=== PATIENT | male | born 1965 | race Caucasian/White ===

== ENCOUNTER → 2016-11-16 | Outpatient (CLI) | payer MEDICARE, OTHER | LOC: OD 11:15 | PROVIDERS: ATTEND Family Medicine | DX: R05 Cough (principal) | CPT/HCPCS: 71020 ==

== ENCOUNTER → 2018-11-07 | Outpatient (CLI) | payer MEDICARE, OTHER ==
--- NOTE | 2018-11-07 14:31 | RADIOLOGY REPORT (SQ) ---
EXAM DESCRIPTION: KNEE RIGHT 4 VIEWS COMPLETED DATE/TIME: 11/07/2018 2:06 pm REASON FOR STUDY: PAIN IN RT KNEE M25.561 PAIN IN RIGHT KNEE COMPARISON: None. NUMBER OF VIEWS: Four views. TECHNIQUE: AP, lateral, and both oblique radiographic images acquired of the right knee. LIMITATIONS: None. FINDINGS: MINERALIZATION: Normal. BONES: No acute fracture or dislocation. No worrisome bone lesions. JOINT: Likely small joint effusion SOFT TISSUES: No soft tissue swelling. No radio-opaque foreign body. OTHER: No other significant finding. IMPRESSION: Likely small joint effusion without evidence of acute bony abnormality. TECHNICAL DOCUMENTATION: JOB ID: [id number]- All Rights Reserved Reading location - IP/workstation name: [facility]-[email or web address]
== END ==
LOC: OD 13:46
PROVIDERS: ATTEND Physician Assistant
DX: M25.561 Pain in right knee (principal)

== ENCOUNTER → 2020-08-21 | Outpatient (CLI) | payer MEDICARE, OTHER ==
--- NOTE | 2020-08-22 06:48 | XCELERA REPORT ---
[address] [address] Transthoracic Echocardiogram Report Name: RICHAR FIELD JR, JR Age: 55 yrs Gender: Male : 1965 Patient Status: Outpatient Patient Location: Study Date: 08/21/2020 10:08 AM History: Height: 63 in Weight: 125 lb BSA: 1.6 m2 Procedure: A complete two-dimensional transthoracic echocardiogram was performed (2D, M-mode, spectral and color flow Doppler). The study was technically difficult with many images being suboptimal in quality. Reason For Study: AORTIC STENOSIS Previous Evaluation: A previous study was performed on 03/01/2014 LVEF Normal. Mild . History: Aortic stenosis. Ordering Physician: YOSHI OCHOA Performed By: Freda Glez Interpretation Summary Left ventricular systolic function is normal. The right ventricle is normal in size and function. There is a trace amount of mitral regurgitation There is moderate aortic stenosis Compared to the prior echo study, there has been an increase in the severity of aortic stenosis There is a trace amount of tricuspid regurgitation There is moderate pulmonary hypertension by echo There is no pericardial effusion. MMode/2D Measurements & Calculations RVDd: 1.9 cm LVIDd: 4.2 cm FS: 36.7 % Ao root diam: 2.4 cm IVSd: 0.80 cm LVIDs: 2.6 cm EDV(Teich): 77.5 ml Ao root area: 4.5 cm2 LVPWd: 0.90 cm ESV(Teich): 25.7 ml EF(Teich): 66.9 % Doppler Measurements & Calculations MV E max mckenzie: MV dec slope: Ao V2 max: LV V1 max P.4 cm/sec 535.8 cm/sec2 305.8 cm/sec 1.9 mmHg MV A max mckenzie: MV dec time: 0.21 secAo max PG: LV V1 mean P.0 cm/sec 37.4 mmHg 1.1 mmHg MV E/A: 1.6 Ao V2 mean: LV V1 max: 223.2 cm/sec 68.0 cm/sec Ao mean PG: LV V1 mean: 22.3 mmHg 49.6 cm/sec Ao V2 VTI: 77.3 cm LV V1 VTI: 17.9 cm PA V2 max: TR max mckenzie: 103.3 cm/sec 269.6 cm/sec PA max P.3 mmHg TR max P.3 mmHg Left Ventricle The left ventricle is normal in size. There is moderate concentric left ventricular hypertrophy. Left ventricular systolic function is normal. The Ejection Fraction estimate is 55-60%. Doppler measurements suggest pseudonormalized left ventricular relaxation, which is associated with grade II/IV or mild to moderate diastolic dysfunction. Right Ventricle The right ventricle is normal in size and function. Atria The right atrium is normal. The left atrial size is normal. Mitral Valve The mitral valve is grossly normal. There is a trace amount of mitral regurgitation. Aortic Valve The aortic valve is sclerotic and shows some degree of functional abnormality. The aortic valve is moderately calcified. Peak Ao V=3.06 m/s Mean PG= 22 mm Hg. There is moderate aortic stenosis. Compared to the prior echo study, there has been an increase in the severity of aortic stenosis. Tricuspid Valve The tricuspid valve is normal in structure and function. There is no tricuspid stenosis. There is a trace amount of tricuspid regurgitation. Right ventricular systolic pressure is estimated to be elevated at 50-60mmHg. There is moderate pulmonary hypertension by echo. Pulmonic Valve The pulmonic valve is normal in structure and function. There is no pulmonic valvular stenosis. There is a trace amount of pulmonic regurgitation. Great Vessels The aortic root is normal size. The inferior vena cava appeared dilated and decreased < 50% with respiration (RAP 15-20 mmHg). Effusions There is no pericardial effusion. : YOSHI OCHOA Anil
== END ==
LOC: SP 10:46
PROVIDERS: ATTEND Physician Assistant
DX: I35.0 Nonrheumatic aortic (valve) stenosis (principal)
CPT/HCPCS: 93306

== ENCOUNTER → 2020-09-11 | Outpatient (CLI) | payer MEDICARE, OTHER ==
--- NOTE | 2020-09-11 15:38 | RADIOLOGY REPORT (SQ) ---
EXAM DESCRIPTION: CT ABD/PELVIS WITH IV ORAL IMAGES COMPLETED DATE/TIME: 09/11/2020 3:26 pm REASON FOR STUDY: (R63.4)ABNORMAL WEIGHT LOSS;(R10.13)EPIGASTRIC PAIN R10.13 EPIGASTRIC PAIN R63.4 ABNORMAL WEIGHT LOSS COMPARISON: 03/01/2014 TECHNIQUE: CT scan of the abdomen and pelvis performed using helical scanning technique with dynamic intravenous contrast injection. No oral contrast. Images reviewed with lung, soft tissue, and bone windows. Reconstructed coronal and sagittal MPR images reviewed. Delayed images for evaluation of the urinary system also acquired. All images stored on PACS. All CT scanners at this facility use dose modulation, iterative reconstruction, and/or weight based d osing when appropriate to reduce radiation dose to as low as reasonably achievable (ALARA). [facility]: Dose Right [facility]: CareDose [facility]: Dose Right [facility]: Teradose 4D [facility]: NexSteppe CONTRAST TYPE AND DOSE: contrast/concentration: Isovue 350.00 mmol/ml; Total Contrast Delivered: 65. 0 ml; Total Saline Delivered: 65.0 ml RENAL FUNCTION: Creatinine 1.0 RADIATION DOSE: CT Rad equipment meets quality standard of care and radiation dose reduction techniq ues were employed. CTDIvol: 3.1 - 3.1 mGy. DLP: 317 mGy-cm.. LIMITATIONS: Respiratory motion. FINDINGS: LOWER CHEST: No significant findings. No nodules or infiltrates. LIVER: Normal size. No masses. No dilated ducts. SPLEEN: Normal size. No focal lesions. PANCREAS: No masses. No significant calcifications. No adjacent inflammation or peripancreatic fluid collections. Pancreatic duct not dilated. GALLBLADDER: No identified stones by CT criteria. No inflammatory changes to suggest cholecystitis. ADRENAL GLANDS: No significant masses or asymmetry. RIGHT KIDNEY AND URETER: No solid masses. No significant calcifications. No hydronephrosis or hyd roureter. LEFT KIDNEY AND URETER: No solid masses. No significant calcifications. No hydronephrosis or hydr oureter. AORTA AND VESSELS: No aneurysm. No dissection. Renal arteries, SMA, celiac without stenosis. RETROPERITONEUM: No retroperitoneal adenopathy, hemorrhage or masses. BOWEL AND PERITONEAL CAVITY: No masses or inflammatory changes. No free fluid or peritoneal masses. APPENDIX: Not visualized. PELVIS: No mass. No free fluid. Normal bladder. ABDOMINAL WALL: No masses. No hernias. BONES: Degenerative changes throughout the lumbar spine. OTHER: No other significant finding. IMPRESSION: Degenerative changes in the lumbar spine. No acute findings in the abdomen or pelvis. Study is limited by respiratory motion. Relative lack of intra and retroperitoneal fat as well. TECHNICAL DOCUMENTATION: JOB ID: [id number] Quality ID # [id number]: Final reports with documentation of one or more dose reduction techniques (e.g., Au tomated exposure control, adjustment of the mA and/or kV according to patient size, use of iterative reconstruction technique) 2010 [employer]- All Rights Reserved Reading location - IP/workstation name: [facility]-
== END ==
LOC: RAD 14:38
PROVIDERS: ATTEND Internal Medicine Gastroenterology
DX: R63.4 Abnormal weight loss (principal); R10.13 Epigastric pain; M47.896 Other spondylosis, lumbar region
CPT/HCPCS: 74177; 82565